=== PATIENT | female | born 1980 | race Caucasian/White ===

== ENCOUNTER → 2025-03-20 09:52 | Outpatient (REF) | payer BC, SELFPAY | LOC: HWRAD 09:52 | PROVIDERS: ATTENDING PHYSICIAN Internal Medicine Cardiovascular Disease; FAMILY PHYSICIAN Nurse Practitioner Family | DX: E01.0 Iodine-deficiency related diffuse (endemic) goiter (principal) | CPT/HCPCS: 76536 ==